=== PATIENT | female | born 1995 | race Two or more races ===

== ENCOUNTER 2020-12-03 04:14 | Inpatient (IN) | payer OTHER ==
[~2020-12-03] VITALS: Ht 160 cm; Wt 2.7 kg
[2020-12-03] MEDS ORDERED: PRENATAL TABLE1 EAC1 PO (04:16)
== END 2020-12-06 16:22 | disposition home or self-care (01) | DRG 785 ==
LOC: LDR 04:14 → OB/GYN 04:14
PROVIDERS: ADMIT Obstetrics & Gynecology Obstetrics; ATTEND Obstetrics & Gynecology Obstetrics
PROC: 0UB70ZZ Excision of Bilateral Fallopian Tubes, Open Approach (ICD-10-PCS; 2020-12-03)
PROC: 4A1HXFZ Monitoring of Products of Conception, Cardiac Rhythm, External Approach (ICD-10-PCS; 2020-12-03)
PROC: 10D00Z1 Extraction of Products of Conception, Low, Open Approach (ICD-10-PCS; principal; 2020-12-03 09:45)
DX: O34.211 Maternal care for low transverse scar from previous cesarean delivery (principal); Z30.2 Encounter for sterilization; Z37.0 Single live birth; Z3A.38 38 weeks gestation of pregnancy